=== PATIENT | male | born 1980 | race Caucasian/White ===

== ENCOUNTER 2016-05-08 11:58 | Inpatient (IN) ==
[2016-05-08] MEDS ORDERED: MOM Conc 10 ML UD.LIQ PO PRN (16:47)
[2016-05-08] MEDS ORDERED: hydrOXYzine pamoate 25 MG CAPSULE PO PRN (16:47)
[2016-05-08] MEDS ORDERED: *HR* LORazepam 1 MG TABLET PO PRN (16:47)
[2016-05-08] MEDS ORDERED: Mag Hydrox/Al Hydrox/Simeth 30 ML UDC PO PRN (16:47)
[2016-05-08] MEDS ORDERED: Haloperidol Lactate 5 MG/ML VIAL IM PRN (16:47)
[2016-05-08] MEDS ORDERED: *HR* LORazepam 2 MG/ML VIAL IM PRN (16:47)
[2016-05-08] MEDS: Ibuprofen 400 MG TABLET PO PRN (17:15)
[2016-05-08] MEDS: Nicotine 21 MG PATCH.TD24 TD SCH (17:16)
[2016-05-09] MEDS: Ibuprofen 400 MG TABLET PO PRN (02:53)
[2016-05-09] MEDS: traZODone 50 MG TABLET PO PRN (02:53)
[2016-05-09] MEDS: Nicotine 21 MG PATCH.TD24 TD SCH (09:11)
--- NOTE | 2016-05-09 12:53 | Psychiatry History & Physical ---
Date of Encounter: 05/09/16 Time of Encounter: 12:30 History of Present Illness Patient Stated Chief Complaint: Suicidal ideation, hearing voices Medicare Admission Attestation: For traditional Medicare patients the provided hospital inpatient services are reasonable and necessary and in the case of services not specified as inpatient -only under 42 CFR 419.22 (n), that they are appropriately provided as inpatient services in accordance 42 CFR 412.3. For Critical [facility] Hospital the patient may reasonably be expected to be discharged or transferred to a hospital within 96 hours after admission to the Critical Access Hospital. Admitted From: Emergency Dept History of Present Illness: Mr. Gallego is a 35 year old male admitted to the emergency room for evaluation of depression and suicidal ideation and auditory hallucinations patient had plans to run into traffic to kill himself. Patient had a history of psychiatric treatment and previous hospitalizations last was in August 2015 was a similar presentation. Patient claimed that his medication was stolen and he came in the hospital because she could not find his medication patient is functioning and lacks into his illness and very concrete in his thinking. Patient was hospitalized for similar presentation on 06/26/2015 and at that time he was treated with Celexa and trazodone. Patient has history of depression and although intellectual functioning. Past Med Surg Social Fam HX - Past Medical History Medical history: hyperlipidemia, hypertension, seizures, other - Past Psychiatric History Psychiatric history: Reports: anxiety, depression, prior suicide attempt, previous psychiatric hospitalization Past psychiatric history details: Most recent hospitalization June 2015 Family psychiatric history: Unknown Family History of Suicide: Unknown - Past Surgical History Surgical History: no surgical history - Social History Smoking Status: Never smoker Smokeless Tobacco Status: Yes Alcohol use: none Drug use: none Medications & Allergies Guaifenesin/Pseudoephedrne HCl [Mucus Relief D Tablet] 1 each PO BID PRN [History] Allergies Penicillins Allergy (Verified 05/08/16 02:00) Itching acetaminophen [From Tylenol] Adverse Reaction (Verified 05/08/16 02:00) Depression Review of Systems Psychiatric: Reports: depression, suicidal ideation, auditory hallucinations Mental Status Exam Patient orientation: Yes Person, Yes Place Level of alertness: Alert Patient appearance: Appropriate, Unkempt Behavior: cooperative, anxious, distractible Psychomotor activity: Increased Eye contact: Fleeting Contact Mood description: Depressed, Anxious, Irritable Affect description: congruent with mood, labile, anxious Speech pattern: Normal rate, Normal rhythm, Normal tone, Disorganized, Rambling , Repetitive, Impoverished Speech volume: Normal Thought process: Circumstantial, Flight of Ideas, [place] Thought content: Yes Suicidal ideation, No Homicidal ideation, No Overt delusions Perceptual disturbances: Yes Auditory hallucinations, No Visual hallucinations Attention span: Unable to Focus Memory description: Grossly Intact Patient reliability: Questionable Historian Intelligence estimate: Below Average Judgment: Limited Insight: Partial Results - Vital Signs Vital signs: Temp Pulse Resp BP 97.3 F L 63 18 133/81 05/09/16 09:00 05/09/16 09:00 05/09/16 09:00 05/09/16 09:00 Assessment and Plan (1) Depression, major, recurrent, severe with psychosis Current visit: Yes Status: Acute Plan: Admit inpatient for safety and stabilization, Close observation, Suicide Precautions per unit protocol, Encourage participation in unit milieu, Group Therapy, Monitor sleep, Monitor appetite Risks, benefits, side effects, alternatives discussed w/pt: Yes Patient agreeable to treatment: Yes Estimated Length of Stay (Days): 5
[2016-05-10] MEDS: traZODone 50 MG TABLET PO PRN (02:02)
[2016-05-10] MEDS: Ibuprofen 400 MG TABLET PO PRN ×2 (02:02→19:02)
[2016-05-10] MEDS: Nicotine 21 MG PATCH.TD24 TD SCH (08:37)
[2016-05-10] MEDS: ARIPiprazole 10 MG TABLET PO SCH (09:17)
--- NOTE | 2016-05-10 14:17 | Psychiatry Progress Note ---
Date of Encounter: 05/10/16 Time of Encounter: 14:14 Subjective Interval history: Patient was seen for follow-up. Staff report she is taking his medication and attending groups. He denies suicidal ideation. I discussed with the patient is smoking and he said he is chewing tobacco and I recommended that he cut down on his chewing he denied any use of drugs or alcohol and he elected to stay busy helping his father who works on cars. He was started on Celexa and Abilify yesterday. He denies any side effects from the medication. Review of Systems Psychiatric: Reports: depression, suicidal ideation, auditory hallucinations Objective: Exam Patient orientation: Yes Person, Yes Time, Yes Place Level of alertness: Alert Patient appearance: Appropriate, Well Groomed Behavior: calm, cooperative, anxious, guarded Psychomotor activity: Increased Eye contact: Maintains Eye Contact Mood description: Depressed, Anxious, Irritable Affect description: congruent with mood, labile, anxious Speech pattern: Normal rate, Normal rhythm, Normal tone, Clear, Repetitive, Impoverished Speech volume: Normal Thought process: Circumstantial, Flight of Ideas, [place] Thought content: No Suicidal ideation, No Homicidal ideation, No Overt delusions Perceptual disturbances: Yes Auditory hallucinations, No Visual hallucinations Judgment: Limited Insight: Partial Results - Vital Signs Vital Signs: Temp Pulse Resp BP 97.6 F 59 16 121/72 05/10/16 09:00 05/10/16 09:00 05/10/16 09:00 05/10/16 09:00 Assessment and Plan (1) Depression, major, recurrent, severe with psychosis Current visit: Yes Status: Acute Plan: Continue hospitalization, Close observation, Suicide Precautions per unit protocol, Encourage participation in unit milieu, Group Therapy, Monitor sleep, Monitor appetite Additional Plan: We will start patient on citalopram 20 mg daily and Abilify 10 mg daily benefits side effects were discussed patient is agreeable and will monitor Risks, benefits, side effects, alternatives discussed w/pt: Yes Patient agreeable to treatment: Yes Consult Discharge Plan - Plan Referrals: NO,PCP [Primary Care Provider] -
[2016-05-11] MEDS: ARIPiprazole 10 MG TABLET PO SCH (08:56)
[2016-05-11] MEDS: Nicotine 21 MG PATCH.TD24 TD SCH (08:57)
--- NOTE | 2016-05-11 14:22 | Psychiatry Progress Note ---
Date of Encounter: 05/11/16 Time of Encounter: 14:17 Subjective Interval history: Patient seen for follow-up. Nursing staff reports he is more focused and participated in groups. He reports on and off suicidal ideation. No plan. He asked me about his medication and I discussed with him his medication and the benefits and how he should take it. He is more interactive he is not anxious, he is not irritable, his mood is stabilizing. He denies any problem with sleep. I discussed with him daily activities to keep himself busy and is interested in joining a gym and exercise. Review of Systems Psychiatric: Reports: depression, suicidal ideation, auditory hallucinations Objective: Exam Patient orientation: Yes Person, Yes Time, Yes Place Level of alertness: Alert Patient appearance: Appropriate, Well Groomed Behavior: calm, cooperative, anxious, guarded Psychomotor activity: Normal Eye contact: Maintains Eye Contact Mood description: Euthymic/stable, Anxious, Irritable Affect description: congruent with mood, labile, anxious Speech pattern: Normal rate, Normal rhythm, Normal tone, Clear, Repetitive Speech volume: Normal Thought process: Circumstantial, [place] Thought content: No Suicidal ideation, No Homicidal ideation, No Overt delusions Perceptual disturbances: No Auditory hallucinations, No Visual hallucinations Judgment: Limited Insight: Partial Results - Vital Signs Vital Signs: Temp Pulse Resp BP 98.4 F 59 16 119/74 05/11/16 09:00 05/11/16 09:00 05/11/16 09:00 05/11/16 09:00 Assessment and Plan (1) Depression, major, recurrent, severe with psychosis Current visit: Yes Status: Acute Plan: Continue hospitalization, Close observation, Suicide Precautions per unit protocol, Encourage participation in unit milieu, Group Therapy, Monitor sleep, Monitor appetite Risks, benefits, side effects, alternatives discussed w/pt: Yes Patient agreeable to treatment: Yes Consult Discharge Plan - Plan Referrals: NO,PCP [Primary Care Provider] -
[2016-05-11] MEDS: traZODone 50 MG TABLET PO PRN (22:16)
[2016-05-11] MEDS: Ibuprofen 400 MG TABLET PO PRN (22:16)
[2016-05-12] MEDS: Nicotine 21 MG PATCH.TD24 TD SCH (08:19)
[2016-05-12] MEDS: ARIPiprazole 10 MG TABLET PO SCH (08:19)
[2016-05-12 09:43] VITALS: BP 121/71
--- NOTE | 2016-05-12 11:04 | Discharge Summary ---
Date of Encounter: 05/12/16 Time of Encounter: 11:30 Diagnosis - Discharge Diagnosis (1) Depression, major, recurrent, severe with psychosis Status: Acute Medications - Discharge Medications Prescriptions: Aripiprazole [Abilify] 10 mg PO DAILY #30 tablet Citalopram [CeleXA] 20 mg PO DAILY #30 tablet Guaifenesin/Pseudoephedrne HCl [Mucus Relief D Tablet] 1 each PO BID PRN [History] Aripiprazole [Abilify] 10 mg PO DAILY #30 tablet 05/12/16 [Rx] Citalopram [CeleXA] 20 mg PO DAILY #30 tablet 05/12/16 [Rx] Allergies Penicillins Allergy (Verified 05/08/16 02:00) Itching acetaminophen [From Tylenol] Adverse Reaction (Verified 05/08/16 02:00) Depression Provider Date of admission: 05/08/16 11:58 Primary care physician: PCP NO Discharging clinician: Ant Amezcua Assessment and Plan - Patient/Caregiver Discharge Instructions Activity: resume usual activities as tolerated Diet: regular diet Additional Instructions: . - Follow up Plan Follow up with: [facility] [Outside] - 05/26/16 10:30 am (The above appointment is with an family centered specialist. When you come to your first appointment, please bring the following with you to your first visit to the clinic: 1) proof of household income (two consecutive pay stubs, social security award letter, bank statement, statement letter from [facility], child support statement, IRS 1040 or W2 form, or a statement from the person who financially supports you stating they help provide for your basic needs), 2) proof of residency (drivers license, a piece of mail showing your address, a statement from person you live with verifying you live at their address), 3) your social security number, and 4) your insurance card (if you have commercial insurance you must call to obtain a prior authorization number before you arrive to your first appointment). If you do not bring these items, you will not be seen.) Jared Granados PAC [[facility] [employer] [employer]] - 06/02/16 9:30 am (The above appointment is with Jared Granados at [facility]. This appointment is to establish you with provider who can assess and treat your physical and mental health needs. After you are seen for the first time in the [place], [place] office, you can have your future appointments in the [place], [place] office. Please arrive 15 minutes early to complete paperwork. Please bring your insurance card , photo ID and list of current medications to your first appointment.) Functional capacity at discharge: independent ambulation Overall status at discharge: Stable Disposition: Home, Self-Care Hospital Course Hospital course: Mr. Gallego is a 35 year old male admitted for evaluation treatments of depression, suicidal ideation and auditory hallucination. For details of the admission please see H&P On the units patient was placed on citalopram and Abilify. She tolerated the medication and denied any side effects reported improved sleep less anxiety and denied any suicidal ideation. He attended groups and activities and was medication compliant. His discharge plans were completed by the psych social worker and shared was a family and the patient. Prior to discharge patient was medically stable and looking forward to to stay active and busy and take his medication as prescribed. - Time Spent with Patient Total time spent providing and/or coordinating discharge services: Less than 30 minutes Quality - Multiple Antipsychotics Patient discharged on 2 or more antipsychotic medications: No Procedures - Procedures Procedures: Medication Management, Crisis Stabilization, Supportive Therapy, Group Therapy, Psychoeducational Therapy Mental Status Exam - Mental Status Exam Patient orientation: Yes Person, Yes Time, Yes Place Level of alertness: Alert Patient appearance: Appropriate, Well Groomed Behavior: calm, cooperative, anxious, guarded Psychomotor activity: Normal Eye contact: Maintains Eye Contact Mood description: Euthymic/stable, Anxious, Irritable Affect description: congruent with mood, full range, anxious Speech pattern: Normal rate, Normal rhythm, Normal tone, Clear, Repetitive Speech Volume: Normal Thought process: Circumstantial, [place] Thought Content: No Suicidal ideation, No Homicidal ideation, No Overt delusions Perceptual Disturbances: No Auditory hallucinations, No Visual hallucinations Judgment: Limited Insight: Partial
[2016-05-12] MEDS: Ibuprofen 400 MG TABLET PO PRN (13:29)
== END 2016-05-12 18:10 | disposition home or self-care (01) | DRG 751 ==
LOC: 1ANU 11:58
PROVIDERS: ADMIT Psychiatry & Neurology Psychiatry; ATTEND Psychiatry & Neurology Psychiatry

== ENCOUNTER 2019-08-01 00:32 | Inpatient (IN) ==
[2019-08-01] MEDS ORDERED: Mag Hydrox/Al Hydrox/Simeth 30 ML UDC PO PRN (02:35)
[2019-08-01] MEDS ORDERED: Haloperidol Lactate 5 MG/ML VIAL IM PRN (02:35)
[2019-08-01] MEDS ORDERED: haloperidoL 5 MG TABLET PO PRN (02:35)
[2019-08-01] MEDS ORDERED: MOM Conc 10 ML UD.LIQ PO PRN (02:35)
[2019-08-01] MEDS ORDERED: *HR* LORazepam 1 MG TABLET PO PRN (02:35)
[2019-08-01] MEDS ORDERED: *HR* LORazepam 2 MG/ML VIAL IM PRN (02:35)
[2019-08-01] MEDS: Acetaminophen 325 MG TABLET PO PRN ×2 (09:21→21:43)
[2019-08-01] MEDS: Nicotine 2 MG GUM BC PRN ×2 (17:35→21:44)
[2019-08-01] MEDS: Divalproex (12 HR) 500 MG TABLET PO SCH (21:44)
[2019-08-01] MEDS: risperiDONE 1 MG TABLET PO SCH (21:44)
[2019-08-01] MEDS: hydrOXYzine pamoate 25 MG CAPSULE PO PRN (21:44)
[2019-08-01] MEDS: QUEtiapine Fumarate 25 MG TABLET PO PRN (21:44)
[2019-08-02] MEDS: Divalproex (12 HR) 500 MG TABLET PO SCH ×2 (09:17→20:54)
[2019-08-02] MEDS: Nicotine 2 MG GUM BC PRN (13:07)
[2019-08-02] MEDS: risperiDONE 1 MG TABLET PO SCH (20:54)
[2019-08-02] MEDS: QUEtiapine Fumarate 25 MG TABLET PO PRN (20:54)
[2019-08-02] MEDS: hydrOXYzine pamoate 25 MG CAPSULE PO PRN (20:54)
[2019-08-03] MEDS: Divalproex (12 HR) 500 MG TABLET PO SCH (09:45)
[2019-08-03 10:20] VITALS: BP 135/61
== END 2019-08-03 13:01 | disposition other institution (70) | DRG 751 ==
LOC: EMEROOARM 00:32 → 1ANU 02:09
PROVIDERS: ADMIT Psychiatry & Neurology Psychiatry; ATTEND Psychiatry & Neurology Psychiatry

== ENCOUNTER 2020-05-02 21:42 | Inpatient (IN) ==
[2020-05-02 22:19] LABS: Bilirubin,Urine Negative (Negative); Blood,Urine Negative (Negative); Clarity,Urine Clear (Clear); Color,Urine Light-Yellow (Yellow); Glucose,Urine (UA) Normal (Normal); Ketones,Urine Negative (Negative); Leukocyte Esterase,Urine Negative (Negative); Nitrite,Urine Negative (Negative); Protein,Urine Negative (Neg-Trace); Specific Gravity,Urine 1.023 (1.010-1.025); Urobilinogen,Urine Normal (Normal)
[2020-05-02 22:22] LABS: Basophils # 0.1 K/mcL (0.0-0.2); Basophils % 0.6 %; Eosinophils # 0.3 K/mcL (0.0-0.6); Eosinophils % 3.1 %; Hematocrit 44.1 % (37.5-50.1); Hemoglobin 14.7 g/dL (12.9-16.9); Immature Granulocytes % 0.3 % (0-4); Lymphocytes # 2.8 K/mcL (0.6-4.6); Lymphocytes % 30.1 %; Mean Corpuscular HGB Conc 33.3 g/dL (31.6-35.5); Mean Corpuscular Hemoglobin 29.3 pg (28.0-33.3); Mean Corpuscular Volume 87.8 fL (83.0-100.0); Mean Platelet Volume 9.5 fL (9.4-12.4); Monocytes # 0.7 K/mcL (0.0-1.3); Monocytes % 7.1 %; Neutrophils # 5.4 K/mcL (1.6-8.9); Platelet Count 264 K/mcL (140-400); Red Blood Count 5.02 M/mcL (4.19-5.50); Red Cell Distribution Width 12.6 % (11.5-14.5); Segmented Neutrophils % 58.8 %; White Blood Count 9.3 K/mcL (4.3-11.1)
[2020-05-02 22:31] LABS: Amphetamine Screen,Urine Negative ng/mL (Cutoff=1000); Barbiturate Screen,Urine Negative ng/mL (Cutoff=200); Benzodiazepines Screen,Urine Negative ng/mL (Cutoff=200); Cannabinoid Screen,Urine Negative ng/mL (Cutoff = 50); Cocaine Screen,Urine Negative ng/mL (Cutoff= 300); Opiate Screen,Urine Negative ng/mL (Cutoff=300); Phencyclidine Screen,Urine Negative ng/mL (Cutoff=25)
[2020-05-02 22:33] LABS: Estimated Average Glucose 120 mg/dl; Hemoglobin A1C 5.8 %
[2020-05-02 22:40] LABS: Acetaminophen < 10 mcg/mL (10-20); BUN/Creatinine Ratio 20 (6-26); Blood Urea Nitrogen 17 mg/dL (6-20); Calcium 9.2 mg/dL (8.6-10.3); Carbon Dioxide 26 mEq/L (23-29); Chloride 105 mEq/L (98-107); Chol/HDL Ratio 4.7 (0-4.9); Cholesterol 221 mg/dL (< 200); Ethanol < 10 mg/dL (Less than 10); Glucose 102 mg/dL (70-105); HDL Cholesterol 47 mg/dL (40-59); LDL Cholesterol,Calculated 148 mg/dL (< 100); Osmolality,Calculated 288 (280-300); Potassium 4.1 mEq/L (3.5-5.1); Salicylate < 2.5 mg/dL (15.0-30.0); Sodium 138 mEq/L (136-145); Triglycerides 129 mg/dL (< 150); eGFR For African Americans > 60 (> 60); eGFR For Non-African Americans > 60 (> 60)
[2020-05-03] MEDS ORDERED: traZODone 50 MG TABLET PO PRN (01:19)
[2020-05-03] MEDS ORDERED: Ibuprofen 400 MG TABLET PO PRN (01:19)
[2020-05-03] MEDS ORDERED: haloperidoL 5 MG TABLET PO PRN (01:19)
[2020-05-03] MEDS ORDERED: *HR* LORazepam 1 MG TABLET PO PRN (01:19)
[2020-05-03] MEDS ORDERED: MOM Conc 10 ML UD.LIQ PO PRN (01:19)
[2020-05-03] MEDS ORDERED: Haloperidol Lactate 5 MG/ML VIAL IM PRN (01:19)
[2020-05-03] MEDS ORDERED: *HR* LORazepam 2 MG/ML VIAL IM PRN (01:19)
[2020-05-03] MEDS ORDERED: Mag Hydrox/Al Hydrox/Simeth 30 ML UDC PO PRN (01:19)
[2020-05-03] MEDS: hydrOXYzine pamoate 25 MG CAPSULE PO PRN ×2 (03:52→20:43)
[2020-05-03] MEDS ORDERED: Nicotine 2 MG GUM BC PRN (12:17)
[2020-05-03] MEDS: Divalproex (24 HR) 500 MG TABLET PO SCH ×2 (14:16→20:43)
[2020-05-03] MEDS: risperiDONE 1 MG TABLET PO SCH (20:43)
[2020-05-04] MEDS: Divalproex (24 HR) 500 MG TABLET PO SCH ×2 (10:10→21:06)
[2020-05-04] MEDS: risperiDONE 1 MG TABLET PO SCH (21:06)
[2020-05-04] MEDS: hydrOXYzine pamoate 25 MG CAPSULE PO PRN (21:06)
[2020-05-04 21:33] VITALS: BP 128/86
[2020-05-05] MEDS: Divalproex (24 HR) 500 MG TABLET PO SCH (09:19)
== END 2020-05-05 10:10 | disposition home or self-care (01) | DRG 751 ==
LOC: EMEROOARM 21:42 → 1ANU 05-03 01:17
PROVIDERS: ADMIT Psychiatry & Neurology Psychiatry; ATTEND Psychiatry & Neurology Psychiatry

== ENCOUNTER 2020-06-27 21:34 | Inpatient (IN) ==
[2020-06-27 22:42] LABS: Basophils % 0.5 %; Eosinophils # 0.2 K/mcL (0.0-0.6); Eosinophils % 1.9 %; Hematocrit 42.5 % (37.5-50.1); Hemoglobin 14.3 g/dL (12.9-16.9); Immature Granulocytes % 0.3 % (0-4); Lymphocytes % 34.2 %; Mean Corpuscular HGB Conc 33.6 g/dL (31.6-35.5); Mean Corpuscular Volume 86.2 fL (83.0-100.0); Mean Platelet Volume 9.3 fL (9.4-12.4); Monocytes # 0.7 K/mcL (0.0-1.3); Monocytes % 7.7 %; Neutrophils # 4.9 K/mcL (1.6-8.9); Platelet Count 256 K/mcL (140-400); Red Blood Count 4.93 M/mcL (4.19-5.50); Red Cell Distribution Width 11.9 % (11.5-14.5); Segmented Neutrophils % 55.4 %; White Blood Count 8.8 K/mcL (4.3-11.1)
[2020-06-27 22:49] LABS: Estimated Average Glucose 128 mg/dl; Hemoglobin A1C 6.1 %
[2020-06-27 23:05] LABS: Acetaminophen < 10 mcg/mL (10-20); BUN/Creatinine Ratio 17 (6-26); Blood Urea Nitrogen 13 mg/dL (6-20); Calcium 9.1 mg/dL (8.6-10.3); Carbon Dioxide 23 mEq/L (23-29); Chloride 105 mEq/L (98-107); Chol/HDL Ratio 4.3 (0-4.9); Cholesterol 202 mg/dL (< 200); Ethanol < 10 mg/dL (Less than 10); Glucose 91 mg/dL (70-105); HDL Cholesterol 47 mg/dL (40-59); LDL Cholesterol,Calculated 131 mg/dL (< 100); Osmolality,Calculated 286 (280-300); Potassium 3.7 mEq/L (3.5-5.1); Salicylate < 2.5 mg/dL (15.0-30.0); Sodium 138 mEq/L (136-145); Triglycerides 121 mg/dL (< 150); eGFR For African Americans > 60 (> 60); eGFR For Non-African Americans > 60 (> 60)
[2020-06-27 23:23] LABS: Bilirubin,Urine Negative (Negative); Blood,Urine Negative (Negative); Clarity,Urine Clear (Clear); Color,Urine Light-Yellow (Yellow); Glucose,Urine (UA) Normal (Normal); Ketones,Urine Negative (Negative); Leukocyte Esterase,Urine Negative (Negative); Nitrite,Urine Negative (Negative); PH,Urine 5.5 pH Units (5.0-8.0); Protein,Urine Negative (Neg-Trace); Specific Gravity,Urine 1.026 (1.010-1.025); Urobilinogen,Urine Normal (Normal)
[2020-06-27 23:34] LABS: Amphetamine Screen,Urine Negative ng/mL (Cutoff=1000); Barbiturate Screen,Urine Negative ng/mL (Cutoff=200); Benzodiazepines Screen,Urine Negative ng/mL (Cutoff=200); Cannabinoid Screen,Urine Negative ng/mL (Cutoff = 50); Cocaine Screen,Urine Negative ng/mL (Cutoff= 300); Opiate Screen,Urine Negative ng/mL (Cutoff=300); Phencyclidine Screen,Urine Negative ng/mL (Cutoff=25)
[2020-06-28] MEDS ORDERED: hydrOXYzine pamoate 25 MG CAPSULE PO PRN (04:20)
[2020-06-28] MEDS ORDERED: Haloperidol Lactate 5 MG/ML VIAL IM PRN (04:20)
[2020-06-28] MEDS ORDERED: haloperidoL 5 MG TABLET PO PRN (04:20)
[2020-06-28] MEDS ORDERED: *HR* LORazepam 1 MG TABLET PO PRN (04:20)
[2020-06-28] MEDS ORDERED: *HR* LORazepam 2 MG/ML VIAL IM PRN (04:20)
[2020-06-28] MEDS ORDERED: traZODone 50 MG TABLET PO PRN (04:20)
[2020-06-28] MEDS ORDERED: Divalproex (24 HR) 500 MG TABLET PO SCH (10:00)
[2020-06-28] MEDS ORDERED: MOM Conc 10 ML UD.LIQ PO PRN (10:04)
[2020-06-28] MEDS ORDERED: Mag Hydrox/Al Hydrox/Simeth 30 ML UDC PO PRN (10:04)
[2020-06-28] MEDS: Nicotine 2 MG GUM BC PRN (11:07)
[2020-06-28] MEDS: Divalproex (24 HR) 500 MG TABLET PO SCH ×2 (14:16→20:39)
[2020-06-28] MEDS: Acetaminophen 325 MG TABLET PO PRN (15:47)
[2020-06-28] MEDS: risperiDONE 1 MG TABLET PO SCH (20:39)
[2020-06-29] MEDS: Divalproex (24 HR) 500 MG TABLET PO SCH ×2 (09:59→21:23)
[2020-06-29] MEDS: Acetaminophen 325 MG TABLET PO PRN (16:04)
[2020-06-29] MEDS: Nicotine 2 MG GUM BC PRN (17:40)
[2020-06-29] MEDS: risperiDONE 1 MG TABLET PO SCH (21:23)
[2020-06-30] MEDS: Divalproex (24 HR) 500 MG TABLET PO SCH (08:42)
[2020-06-30 09:12] VITALS: BP 117/77
== END 2020-06-30 10:45 | disposition home or self-care (01) | DRG 754 ==
LOC: EMEROOARM 21:34 → 1ANU 06-28 04:12
PROVIDERS: ADMIT Psychiatry & Neurology Psychiatry; ATTEND Psychiatry & Neurology Psychiatry